=== PATIENT | female | born 1940 | race Caucasian/White ===

== ENCOUNTER 2020-03-07 18:12 | Inpatient (IN) | payer MEDICARE, OTHER ==
--- NOTE | 2020-03-07 18:30 | ED ---
General Adult HPI - General Chief complaint: Shortness of Breath Stated complaint: + COVID,SOB Time Seen by Provider: 03/07/20 18:18 Source: patient, RN/MD, EMS Mode of arrival: EMS Limitations: no limitations - History of Present Illness Initial comments: Dictation was produced using [employer] dictation software. please excuse any grammatical, word or spelling errors. This patient was cared for during a federal and state declared state of emergency secondary to Covid 19 Chief Complaint: 79-year-old female sent in from [facility] for hypoxic respiratory failure secondary to Covid 19 History of Present Illness: 79-year-old female she was transferred from [facility] by Dr. Limon. Patient was in ER to ER transfer. According to transferring ER physician patient was sent here for higher level of care. She is one other residents at their local nursing homes. She is transferred to emergency department for low saturations in the 70s and 80 percents. Patient is required supplemental oxygen. At the emergency room patient was placed on BiPAP. She was given 1 dose of remdesivir. EMS reports that patient seemed a little wheezing and she was given a breathing treatment for low saturations. The transfer patient was with CPAP. She did have low oxygens. Patient does complain of some mild epigastric pain. The ROS documented in this emergency department record has been reviewed and confirmed by me. Those systems with pertinent positive or negative responses have been documented in the HPI. All other systems are other negative and/or noncontributory. PHYSICAL EXAM: General Impression: Alert and oriented x3, mildly dyspneic, BiPAP in place HEENT: Normocephalic atraumatic, extra-ocular movements intact, pupils equal and reactive to light bilaterally, mucous membranes moist. Cardiovascular: Heart regular rate and rhythm Chest: Able to complete full sentences, no retractions, no tachypnea Abdomen: abdomen soft, non-tender, non-distended, no organomegaly Musculoskeletal: Pulses present and equal in all extremities, no peripheral edema Motor: no focal deficits noted Neurological: CN II-XII grossly intact, no focal motor or sensory deficits noted Skin: Intact with no visualized rashes Psych: Normal affect and mood ED course: 79-year-old female presents with Covid 19 pneumonia. Patient sent here for hypoxic respiratory failure possible ICU admission. Patient is well- appearing at bedside however she does appear to be hypoxic. She is in the high 80s low 90s with bilevel positive airway ventilation. Transfer documentation reviewed reviewed. ABGs were ordered. PO2 is 43, bicarb 26, CO2 of 28, pH of 7.47. Chest x-ray shows CHF and possible right lower lobe pneumonia and right pleural effusion. This is discussed that she does want to set patient's care. Patient will be admitted to intensive care unit. Case is discussed with Dr. Chambers who is willing for patient disposition to intensive care unit. EKG interpretation: Ventricular rate 80, normal sinus rhythm,. 188, QRS 100, QTC 491. No OK prolongation, no QTC prolongation, no ST or T-wave changes noted. - Related Data Allergies Allergy/AdvReac Type Severity Reaction Status Date / Time No Known Allergies Allergy Verified 03/07/20 18:17 Review of Systems ROS Statement: Those systems with pertinent positive or pertinent negative responses have been documented in the HPI. ROS Other: All systems not noted in ROS Statement are negative. Past Medical History Past Medical History: COPD, Hyperlipidemia, Hypertension History of Any Multi-Drug Resistant Organisms: None Reported Past Surgical History: Section Past Psychological History: No Psychological Hx Reported Smoking Status: Never smoker Past Alcohol Use History: None Reported Past Drug Use History: None Reported General Exam Limitations: no limitations Course Vital Signs 03/07/20 03/07/20 18:17 18:25 Temperature 98.6 F 98.6 F Pulse Rate 79 76 Respiratory 36 H 24 Rate Blood Pressure 120/68 O2 Sat by Pulse 88 L 91 L Oximetry Medical Decision Making - Lab Data Lab Results 03/07/20 Range/Units 18:28 Sample Site left radial ABG pH 7.42 (7.35-7.45) ABG pCO2 42 (35-45) mmHg ABG pO2 97 (83-108) mmHg ABG HCO3 27 H (21-25) mmol/L ABG Total CO2 28 H (19-24) mmol/L ABG O2 Saturation 96.5 (94-97) % ABG Base Excess 2.7 mmol/L Eriberto Test Yes FiO2 100 % Critical Care Time Critical Care Time: Yes Total Critical Care Time: 33 Disposition Clinical Impression: Respiratory failure, COVID-19 Disposition: ADMITTED IP TO THIS [facility] Condition: Critical Referrals: Nonstaff,Physician [REFERRING] - 1-2 days Decision Time: 19:16
[2020-03-07 18:32] LABS: Allen Test Performed? Yes
[2020-03-07 18:38] LABS: ABG TCO2 28 mmol/L (19-24)
--- NOTE | 2020-03-07 19:02 | XR ---
EXAMINATION TYPE: XR chest 1V portable DATE OF EXAM: 03/07/2020 COMPARISON: NONE HISTORY: Short of breath TECHNIQUE: FINDINGS: Heart is enlarged. There is pulmonary vascular congestion. There is blunting of the right c ostophrenic angle. There is increased density right lower lobe. IMPRESSION: Congestive heart failure. There is probably also right lower lobe pneumonia. Right pleura l effusion.
[2020-03-07 19:07] LABS: ABG HCO3 27 mmol/L (21-25); ABG PCO2 42 mmHg (35-45); ABG PH 7.42 (7.35-7.45); ABG PO2 97 mmHg (83-108)
[2020-03-07 19:08] LABS: ABG Base Excess 2.7 mmol/L; ABG Oxygen Saturation 96.5 % (94-97)
[2020-03-07] MEDS ORDERED: NALOXONE 0.4 MG/ML 1 ML VIAL IV PRN (19:12)
[2020-03-07] MEDS: ENOXAPARIN 40 MG/0.4 ML SYRINGE SQ SCH (21:23)
[2020-03-07] MEDS: SODIUM CHLORIDE 0.9% 1,000 ML IV SCH (21:24)
[2020-03-07] MEDS: DEXAMETHASONE SOD PHOSPHATE 4 MG/ML 1 ML VIAL IV SCH (21:24)
[2020-03-07 23:50] LABS: Glucose,Whole Blood 333 mg/dL (75-99)
[2020-03-08 00:21] LABS: Allen Test Performed? Yes
[2020-03-08 00:37] LABS: ABG Base Excess 3.6 mmol/L; ABG HCO3 28 mmol/L (21-25); ABG Oxygen Saturation 94.1 % (94-97); ABG PCO2 43 mmHg (35-45); ABG PH 7.42 (7.35-7.45); ABG PO2 74 mmHg (83-108); ABG TCO2 29 mmol/L (19-24)
[2020-03-08] MEDS: LORazepam 2 MG/ML INJ IV PRN (02:11)
[2020-03-08] MEDS ORDERED: propofoL 100 ML IV ONE (03:19)
--- NOTE | 2020-03-08 04:38 | XR ---
EXAM: XR Chest, 1 View CLINICAL HISTORY: ITS.REASON XR Reason: Tube placement TECHNIQUE: Frontal view of the chest. COMPARISON: 03/07/2020 IMPRESSION: ET tube terminates 2.9 cm from the messi. NG tube enters into the stomach but projects off the field of view. Bilateral lung opacities are again seen. Subcentimeter nodular densities in the right upper lobe
[2020-03-08] MEDS ORDERED: fentaNYL (PF) 1,000 MCG in SODIUM CHLORIDE 0.9% 80 ML IV SCH (05:00)
[2020-03-08 06:02] LABS: Glucose,Whole Blood 260 mg/dL (75-99)
[2020-03-08 06:04] LABS: Basophils % (A) 1 %; Eosinophils % (A) 1 %; HCT 35.7 % (34.0-46.0); Lymphocytes # (A) 0.8 k/uL (1.0-4.8); Lymphocytes % (A) 16 %; MCH 30.3 pg (25.0-35.0); MCHC 33.6 g/dL (31.0-37.0); Mean Platelet Volume 7.6; Monocytes # (A) 0.3 k/uL (0-1.0); Monocytes % (A) 6 %; Neutrophils # (A) 3.7 k/uL (1.3-7.7); Neutrophils % (A) 76 %; Platelet Count 193 k/uL (150-450); RBC 3.97 m/uL (3.80-5.40); RDW 12.5 % (11.5-15.5); WBC 4.9 k/uL (3.8-10.6)
[2020-03-08 06:11] LABS: ABG Base Excess 2.3 mmol/L; ABG HCO3 26 mmol/L (21-25); ABG Oxygen Saturation 98.7 % (94-97); ABG PCO2 37 mmHg (35-45); ABG PH 7.46 (7.35-7.45); ABG PO2 207 mmHg (83-108); ABG TCO2 27 mmol/L (19-24); Allen Test Performed? Yes
[2020-03-08] MEDS: INSULIN ASPART (NovoLOG) 100 UNIT/ML VIAL SQ SCH ×3 (06:26→18:37)
[2020-03-08 06:30] LABS: Albumin 3.3 g/dL (3.5-5.0); Calcium 8.7 mg/dL (8.4-10.2); Potassium 3.9 mmol/L (3.5-5.1); Total Bilirubin 0.7 mg/dL (0.2-1.3); Total Protein 6.5 g/dL (6.3-8.2)
[2020-03-08 06:50] LABS: C Reactive Protein 204.7 mg/L (<10.0)
[2020-03-08] MEDS ORDERED: Potassium Replacement Protocol 1 EACH MISC MISCELLANE PRN (07:02)
[2020-03-08] MEDS ORDERED: INSULIN ASPART (NovoLOG) 100 UNIT/ML VIAL SQ SCH (07:30)
[2020-03-08] MEDS ORDERED: POTASSIUM BICARBONATE/CIT AC 20 MEQ TABLET.EFF NG-TUBE SCH (08:00)
[2020-03-08] MEDS: CHLORHEXIDINE GLUCONATE 15 ML CUP MUCOUS MEM SCH ×2 (09:26→20:40)
[2020-03-08] MEDS: PANTOPRAZOLE 40 MG/10 ML VIAL IVP SCH (09:27)
[2020-03-08] MEDS: NOREPINEPHRINE 8 MG in SODIUM CHLORIDE 0.9% 250 ML IV SCH (10:30)
--- NOTE | 2020-03-08 11:15 | XR ---
EXAMINATION TYPE: XR chest 1V portable DATE OF EXAM: 03/08/2020 CLINICAL HISTORY: Central line placement. TECHNIQUE: Single AP portable semiupright view of the chest is obtained. COMPARISON: Chest x-ray from earlier today an older studies FINDINGS: New right sided central venous catheter terminates in right atrium. Stable endotracheal an d orogastric tubes. Persistent elevated right hemidiaphragm with increased opacities bilaterally. No pleural effusion or pneumothorax seen. Enlarged cardiomediastinal silhouette redemonstrated. Osseous structures remain de mineralized. IMPRESSION: New right central venous catheter terminates in right atrium. No pneumothorax noted. Pers istent low lung volumes and cardiomegaly with bilateral multifocal edema and/or infiltrates.
[2020-03-08 13:38] LABS: Hemoglobin A1C 7.9 % (4.0-6.0)
--- NOTE | 2020-03-08 15:35 | PCN ---
PROCEDURE NOTE OPERATIVE REPORT: Placement of a right subclavian triple-lumen catheter. PREOPERATIVE DIAGNOSIS: Acute hypoxic respiratory failure secondary to COVID-19 pneumonitis. POSTOPERATIVE DIAGNOSIS: Acute hypoxic respiratory failure secondary to COVID-19 pneumonitis. ANESTHESIA USED: 2 mL of 1% lidocaine. PROCEDURE DETAILS: Patient was placed in a Trendelenburg position, the area of the right subclavian region was prepared in a sterile fashion and drapes were applied. Then, the area was locally anesthetized with lidocaine. Using the infraclavicular approach, the right subclavian vein was easily cannulated, a guidewire was placed, the area around the guidewire was dilated. Then a triple-lumen catheter was inserted over the guidewire, the guidewire was removed. Good blood flow noted in the 3 different ports of the triple-lumen catheter. Line was secured using 3.0 silk sutures. No evidence of any complications. Chest x-ray showed adequate placement of the right subclavian line and no complications. MMODL / IJN: [id number] /
--- NOTE | 2020-03-08 15:35 | PCN ---
PROCEDURE NOTE OPERATIVE REPORT: Placement of the left brachial arterial line. PREOPERATIVE DIAGNOSIS: Acute hypoxic respiratory failure secondary to Covid-19 pneumonitis. POSTOPERATIVE DIAGNOSIS: Acute hypoxic respiratory failure secondary to Covid-19 pneumonitis. ANESTHESIA: Used none deployed. PROCEDURE DETAILS: The left brachial region was prepared in a sterile fashion and drapes applied. The left brachial artery was palpated, easily cannulated, a guidewire was placed. A Cook catheter was inserted over the guidewire, guidewire was removed. Good blood flow, good waveform noted, line was secured using 3.0 silk sutures, and no evidence of any complications. MMODL / IJN: [id number] /
--- NOTE | 2020-03-08 16:17 | P.CNPUL ---
History of Present Illness Consult date: 03/08/20 Requesting physician: Hector E Sheet Reason for consult: other (Acute hypoxic respiratory failure) Chief complaint: Shortness of breath History of present illness: This is a 79-year-old female transferred last night from [facility] to our ER with acute hypoxic respiratory failure, and bilateral pneumonia. Patient tested positive for covid 19, and her chest x-ray is classic for Covid 19 pneumonitis. Patient was initially on BiPAP, and her initial ABG was extremely poor. Patient was admitted to the ICU, and she Removing her BiPAP. Hence she was intubated and placed on mechanical ventilation. I saw this patient this morning, and she is now on assist control mode of mechanical ventilation, rate of 2412 volume is 450 FiO2 is 60% and PEEP of 10. ABG on 100% FiO2 showed a pO2 of 207 pCO2 of 37 pH of 7.46. Patient is on propofol at 50 mcg/kg/m, she also on fentanyl at 0.5 mcg/kg per hour. She received 1 dose of remdesivir at [facility], I was considering to continue the medication, however since her CODE STATUS has been changed, and the daughter is considering possible comfort care measures, will hold further treatment with remdesivir. Chest x-ray showed evidence of diffuse interstitial infiltrates. Review of Systems ROS unobtainable: due to endotracheal tube Past Medical History Past Medical History: COPD, Hyperlipidemia, Hypertension History of Any Multi-Drug Resistant Organisms: None Reported Past Surgical History: Section Past Anesthesia/Blood Transfusion Reactions: No Reported Reaction Smoking Status: Never smoker Medications and Allergies Home Medications Medication Instructions Recorded Confirmed Type Acetaminophen [Tylenol] 650 mg PO Q6H PRN 03/07/20 03/07/20 History Artificial Tears-Hypromellose 1 drops BOTH EYES BID 03/07/20 03/07/20 History [Artificial Tear Drops] Ascorbic Acid [Vitamin C] 500 mg PO DAILY 03/07/20 03/07/20 History Aspirin [Adult Low Dose Aspirin EC] 81 mg PO DAILY 03/07/20 03/07/20 History Atorvastatin [Lipitor] 10 mg PO HS 03/07/20 03/07/20 History Azithromycin [Zithromax Z-pack (6 See Taper PO DIRECTED 03/07/20 03/07/20 History tabs)] Carvedilol [Coreg] 12.5 mg PO BID 03/07/20 03/07/20 History Cholecalciferol [Vitamin D3 (25 5,000 unit PO DAILY 03/07/20 03/07/20 History Mcg = 1000 Iu)] DULoxetine HCL [Cymbalta] 60 mg PO DAILY 03/07/20 03/07/20 History Dexamethasone 6 mg PO DAILY 03/07/20 03/07/20 History Diphenox-Atrop 2.5-0.025 mg 1 tab PO QID PRN 03/07/20 03/07/20 History [Lomotil] Furosemide [Lasix] 20 mg PO DAILY 03/07/20 03/07/20 History Gabapentin [Neurontin] 100 mg PO BID 03/07/20 03/07/20 History HYDROcodone/APAP 5-325MG [Victor 1 tab PO QID 03/07/20 03/07/20 History 5-325] LORazepam [Ativan] 1 mg PO Q2H PRN 03/07/20 03/07/20 History Levothyroxine Sodium [Synthroid] 50 mcg PO DAILY 03/07/20 03/07/20 History Magnesium Hydroxide [Milk of 2,400 mg PO Q48H PRN 03/07/20 03/07/20 History Magnesia] Mirtazapine [Remeron] 15 mg PO HS 03/07/20 03/07/20 History Pantoprazole Sodium [Protonix] 20 mg PO DAILY 03/07/20 03/07/20 History Potassium Chloride ER [K-Dur 10] 10 meq PO DAILY 03/07/20 03/07/20 History Sennosides-Docusate Sodium 1 tab PO HS 03/07/20 03/07/20 History [Senokot-S] Zinc 50 mg PO DAILY 03/07/20 03/07/20 History lisinopriL [Zestril] 2.5 mg PO DAILY 03/07/20 03/07/20 History Allergies Allergy/AdvReac Type Severity Reaction Status Date / Time No Known Allergies Allergy Verified 03/07/20 22:15 Physical Exam Vitals: Vital Signs Temp Pulse Resp BP Pulse Ox 03/08/20 12:00 66 24 91 L 03/08/20 11:00 66 24 70/53 87 L 03/08/20 10:00 70 24 93/60 92 L 03/08/20 09:00 70 24 88/59 92 L 03/08/20 08:00 74 24 97/63 91 L 03/08/20 07:00 73 24 94/61 90 L 03/08/20 06:00 69 25 H 102/66 98 03/08/20 05:00 74 24 91/60 99 03/08/20 04:00 98.5 F 82 26 H 166/87 77 L 03/08/20 03:00 63 43 H 106/89 91 L 03/08/20 02:00 69 26 H 147/88 94 L 03/08/20 01:00 68 28 H 150/82 94 L 03/08/20 00:00 67 36 H 150/82 93 L 03/07/20 23:45 98.7 F 71 30 H 166/109 94 L 03/07/20 23:00 99.0 F 75 32 H 124/77 98 03/07/20 22:00 98.0 F 89 34 H 116/87 95 03/07/20 21:30 57 L 28 H 138/84 95 03/07/20 21:00 72 30 H 131/77 95 03/07/20 19:23 69 30 H 121/89 94 L 03/07/20 18:25 98.6 F 76 24 91 L 03/07/20 18:17 98.6 F 79 36 H 120/68 88 L Intake and Output 03/08/20 03/08/20 03/08/20 06:59 14:59 22:59 Intake Total 232.584 162.661 Output Total 315 55 Balance -82.416 107.661 Intake: IV 160 60 Sodium Chloride 0.9% 1, 160 60 000 ml @ 20 mls/hr IV . Q24H KESHAV Rx#:[id number] Intake, IV Titration 72.584 102.661 Amount Norepinephrine 8 mg In 2.661 Sodium Chloride 0.9% 250 ml @ 0.05 MCG/KG/MIN 10. 643 mls/hr IV .Q24H KESHAV Rx#:[id number] propofoL 1,000 mg In 72.584 100 Empty Bag 1 bag @ Titrate IV .Q0M KESHAV Rx#: [id number] Output: Urine 315 55 Other: Voiding Method Indwelling Catheter Weight 110 kg 110 kg ABP, PAP, CO, CI - Last 8 Hours Arterial Blood Pressure 105/59 Arterial Blood Pressure 60/37 Physical Exam: Revealed a 79-year-old female, morbidly obese, intubated and mechanically ventilated. Head: Atraumatic, normocephalic. Endotracheal tube, orogastric tube are intact. Right subclavian central line is noted. HEENT:[Neck is supple.] [No neck masses.] [No thyromegaly.] [No JVD.] Chest: Symmetrical chest expansion, crackles and rhonchi noted bilaterally. Cardiac Exam: [Normal S1 and S2, no S3 gallop, no murmur.] Abdomen: [Morbidly obese, Soft, nontender, no megaly, no rebound, no guarding, normal bowel sounds.] Extremities: [No clubbing, no edema, no cyanosis.] Good pulses bilaterally Neurological Exam: Could not assess, patient is on propofol and fentanyl. Psychiatric could not assess Results - Laboratory Findings CBC and BMP: 03/08/20 05:34 03/08/20 05:34 ABG ABG pH 7.46 (7.35-7.45) H 03/08/20 06:05 ABG pCO2 37 mmHg (35-45) 03/08/20 06:05 ABG pO2 207 mmHg (83-108) H 03/08/20 06:05 ABG O2 Saturation 98.7 % (94-97) H 03/08/20 06:05 PT/INR, D-dimer D-Dimer 0.75 mg/L FEU (<0.60) H 03/08/20 05:34 Abnormal lab findings: Abnormal Labs 03/07/20 03/07/20 03/08/20 18:28 23:49 00:35 Lymphocytes # D-Dimer ABG pH ABG pO2 74 L ABG HCO3 27 H 28 H ABG Total CO2 28 H 29 H ABG O2 Saturation Sodium BUN Glucose POC Glucose (mg/dL) 333 H Hemoglobin A1c Ferritin AST Lactate Dehydrogenase C-Reactive Protein Albumin 03/08/20 03/08/20 03/08/20 05:34 05:34 05:34 Lymphocytes # 0.8 L D-Dimer 0.75 H ABG pH ABG pO2 ABG HCO3 ABG Total CO2 ABG O2 Saturation Sodium 135 L BUN 31 H Glucose 276 H POC Glucose (mg/dL) Hemoglobin A1c Ferritin 768.0 H AST 37 H Lactate Dehydrogenase 1171 H C-Reactive Protein 204.7 H Albumin 3.3 L 03/08/20 03/08/20 03/08/20 05:34 06:01 06:05 Lymphocytes # D-Dimer ABG pH 7.46 H ABG pO2 207 H ABG HCO3 26 H ABG Total CO2 27 H ABG O2 Saturation 98.7 H Sodium BUN Glucose POC Glucose (mg/dL) 260 H Hemoglobin A1c 7.9 H Ferritin AST Lactate Dehydrogenase C-Reactive Protein Albumin - Diagnostic Findings Chest x-ray: image reviewed (As noted in HPI.) Assessment and Plan Assessment: Impression: Acute hypoxic respiratory failure secondary to Covid 19 pneumonitis. History of benign essential hypertension. History of dyslipidemia. History of underlying COPD, severity of which is not clear. Recommendation: Continue ventilatory support. Continue Covid 19 cocktail. GI and DVT prophylaxis. Nutritional support/enteral feeding. Hemodynamic support if necessary. Prognosis is definitely guarded. adjust ventilator settings accordingly based on the next ABG. Continue propofol and fentanyl for now. Apparently the nurse taking care of the patient had discussion with her daughter, and CODE STATUS has been all along DO NOT RESUSCITATE, daughter is considering comfort care measures. Will recommend the wishes of the daughter , we will proceed with comfort care measures if the daughter wishes and if those are true wishes of the patient prior to this episode. Time with Patient: Greater than 30
[2020-03-08 18:36] LABS: Glucose,Whole Blood 250 mg/dL (75-99)
[2020-03-08] MEDS: SODIUM CHLORIDE 0.9% 1,000 ML IV SCH (18:37)
[2020-03-08] MEDS: fentaNYL (PF) 1,000 MCG in SODIUM CHLORIDE 0.9% 80 ML IV SCH (19:05)
[2020-03-08] MEDS: DEXAMETHASONE SOD PHOSPHATE 4 MG/ML 1 ML VIAL IV SCH (20:40)
[2020-03-08] MEDS: ENOXAPARIN 40 MG/0.4 ML SYRINGE SQ SCH (20:40)
[2020-03-08 23:55] LABS: Glucose,Whole Blood 210 mg/dL (75-99)
[2020-03-09 04:15] LABS: Basophils # (A) 0.1 k/uL (0-0.2); Basophils % (A) 1 %; Eosinophils % (A) 0 %; HCT 34.1 % (34.0-46.0); HGB 11.6 gm/dL (11.4-16.0); Lymphocytes # (A) 0.6 k/uL (1.0-4.8); Lymphocytes % (A) 10 %; MCH 30.2 pg (25.0-35.0); MCHC 34.1 g/dL (31.0-37.0); MCV 88.6 fL (80.0-100.0); Mean Platelet Volume 7.8; Monocytes # (A) 0.4 k/uL (0-1.0); Monocytes % (A) 6 %; Neutrophils # (A) 5.2 k/uL (1.3-7.7); Neutrophils % (A) 82 %; Platelet Count 204 k/uL (150-450); RBC 3.85 m/uL (3.80-5.40); RDW 12.5 % (11.5-15.5); WBC 6.4 k/uL (3.8-10.6)
--- NOTE | 2020-03-09 04:49 | P.HPIM ---
History of Present Illness This is a pleasant 79 years old female who was transferred from [facility] for bilateral covid Pneumonia as her test came back positive she's also with acute hypoxic respiratory failure initially she was on BiPAP but later on she needed intubation and placed on mechanical ventilation and was transferred to the intensive care unit under the care and close monitoring of the pulmonary/critical care team, patient could not provide information and were obtained from records Patient currently is on dexamethasone and supportive care and medication Patient status changed to DO NOT RESUSCITATE per daughter request labs and vitals are reviewed Review of Systems N/a, patient is intubated Past Medical History Past Medical History: COPD, Hyperlipidemia, Hypertension History of Any Multi-Drug Resistant Organisms: None Reported Past Surgical History: Section Past Anesthesia/Blood Transfusion Reactions: No Reported Reaction Smoking Status: Never smoker Medications and Allergies Home Medications Medication Instructions Recorded Confirmed Type Acetaminophen [Tylenol] 650 mg PO Q6H PRN 03/07/20 03/07/20 History Artificial Tears-Hypromellose 1 drops BOTH EYES BID 03/07/20 03/07/20 History [Artificial Tear Drops] Ascorbic Acid [Vitamin C] 500 mg PO DAILY 03/07/20 03/07/20 History Aspirin [Adult Low Dose Aspirin EC] 81 mg PO DAILY 03/07/20 03/07/20 History Atorvastatin [Lipitor] 10 mg PO HS 03/07/20 03/07/20 History Azithromycin [Zithromax Z-pack (6 See Taper PO DIRECTED 03/07/20 03/07/20 History tabs)] Carvedilol [Coreg] 12.5 mg PO BID 03/07/20 03/07/20 History Cholecalciferol [Vitamin D3 (25 5,000 unit PO DAILY 03/07/20 03/07/20 History Mcg = 1000 Iu)] DULoxetine HCL [Cymbalta] 60 mg PO DAILY 03/07/20 03/07/20 History Dexamethasone 6 mg PO DAILY 03/07/20 03/07/20 History Diphenox-Atrop 2.5-0.025 mg 1 tab PO QID PRN 03/07/20 03/07/20 History [Lomotil] Furosemide [Lasix] 20 mg PO DAILY 03/07/20 03/07/20 History Gabapentin [Neurontin] 100 mg PO BID 03/07/20 03/07/20 History HYDROcodone/APAP 5-325MG [Bryan 1 tab PO QID 03/07/20 03/07/20 History 5-325] LORazepam [Ativan] 1 mg PO Q2H PRN 03/07/20 03/07/20 History Levothyroxine Sodium [Synthroid] 50 mcg PO DAILY 03/07/20 03/07/20 History Magnesium Hydroxide [Milk of 2,400 mg PO Q48H PRN 03/07/20 03/07/20 History Magnesia] Mirtazapine [Remeron] 15 mg PO HS 03/07/20 03/07/20 History Pantoprazole Sodium [Protonix] 20 mg PO DAILY 03/07/20 03/07/20 History Potassium Chloride ER [K-Dur 10] 10 meq PO DAILY 03/07/20 03/07/20 History Sennosides-Docusate Sodium 1 tab PO HS 03/07/20 03/07/20 History [Senokot-S] Zinc 50 mg PO DAILY 03/07/20 03/07/20 History lisinopriL [Zestril] 2.5 mg PO DAILY 03/07/20 03/07/20 History Allergies Allergy/AdvReac Type Severity Reaction Status Date / Time No Known Allergies Allergy Verified 03/07/20 22:15 Physical Exam Vitals: Vital Signs Temp Pulse Resp BP Pulse Ox 03/08/20 12:00 66 24 91 L 03/08/20 11:00 66 24 70/53 87 L 03/08/20 10:00 70 24 93/60 92 L 03/08/20 09:00 70 24 88/59 92 L 03/08/20 08:00 74 24 97/63 91 L 03/08/20 07:00 73 24 94/61 90 L 03/08/20 06:00 69 25 H 102/66 98 03/08/20 05:00 74 24 91/60 99 03/08/20 04:00 98.5 F 82 26 H 166/87 77 L 03/08/20 03:00 63 43 H 106/89 91 L 03/08/20 02:00 69 26 H 147/88 94 L 03/08/20 01:00 68 28 H 150/82 94 L 03/08/20 00:00 67 36 H 150/82 93 L 03/07/20 23:45 98.7 F 71 30 H 166/109 94 L 03/07/20 23:00 99.0 F 75 32 H 124/77 98 03/07/20 22:00 98.0 F 89 34 H 116/87 95 03/07/20 21:30 57 L 28 H 138/84 95 03/07/20 21:00 72 30 H 131/77 95 03/07/20 19:23 69 30 H 121/89 94 L 03/07/20 18:25 98.6 F 76 24 91 L 03/07/20 18:17 98.6 F 79 36 H 120/68 88 L Intake and Output 03/07/20 03/08/20 03/08/20 22:59 06:59 14:59 Intake Total 232.584 162.661 Output Total 315 55 Balance -82.416 107.661 Intake: IV 160 60 Sodium Chloride 0.9% 1, 160 60 000 ml @ 20 mls/hr IV . Q24H KESHAV Rx#:[id number] Intake, IV Titration 72.584 102.661 Amount Norepinephrine 8 mg In 2.661 Sodium Chloride 0.9% 250 ml @ 0.05 MCG/KG/MIN 10. 643 mls/hr IV .Q24H KESHAV Rx#:[id number] propofoL 1,000 mg In 72.584 100 Empty Bag 1 bag @ Titrate IV .Q0M KESHAV Rx#: [id number] Output: Urine 315 55 Other: Voiding Method Indwelling Catheter Weight 114.305 kg 110 kg 110 kg ABP, PAP, CO, CI - Last 8 Hours Arterial Blood Pressure 105/59 Arterial Blood Pressure 60/37 -GENERAL: The patient is intubated and sedated HEENT: Pupils are round and equally reacting to light. EOMI. No scleral icterus. No conjunctival pallor. Normocephalic, atraumatic. No pharyngeal erythema. No thyromegaly. CARDIOVASCULAR: S1 and S2 present. No murmurs, rubs, or gallops. -PULMONARY: Chest is clear to auscultation, no wheezing . Tachypnea with bilateral ABDOMEN: Soft, nontender, nondistended, normoactive bowel sounds. No palpable organomegaly. MUSCULOSKELETAL: No joint swelling or deformity. EXTREMITIES: No cyanosis, clubbing, or pedal edema. NEUROLOGICAL: Gross neurological examination did not reveal any focal deficits. SKIN: No rashes. no petechiae. Results CBC & Chem 7: 03/09/20 04:02 03/08/20 05:34 Labs: Abnormal Lab Results - Last 24 Hours (Table) 03/07/20 03/07/20 03/08/20 Range/Units 18:28 23:49 00:35 Lymphocytes # (1.0-4.8) k/uL D-Dimer (<0.60) mg/L FEU ABG pH (7.35-7.45) ABG pO2 74 L (83-108) mmHg ABG HCO3 27 H 28 H (21-25) mmol/L ABG Total CO2 28 H 29 H (19-24) mmol/L ABG O2 Saturation (94-97) % Sodium (137-145) mmol/L BUN (7-17) mg/dL Glucose (74-99) mg/dL POC Glucose (mg/dL) 333 H (75-99) mg/dL Ferritin (10.0-291.0) ng/mL AST (14-36) U/L Lactate Dehydrogenase (313-618) U/L C-Reactive Protein (<10.0) mg/L Albumin (3.5-5.0) g/dL 03/08/20 03/08/20 03/08/20 Range/Units 05:34 05:34 05:34 Lymphocytes # 0.8 L (1.0-4.8) k/uL D-Dimer 0.75 H (<0.60) mg/L FEU ABG pH (7.35-7.45) ABG pO2 (83-108) mmHg ABG HCO3 (21-25) mmol/L ABG Total CO2 (19-24) mmol/L ABG O2 Saturation (94-97) % Sodium 135 L (137-145) mmol/L BUN 31 H (7-17) mg/dL Glucose 276 H (74-99) mg/dL POC Glucose (mg/dL) (75-99) mg/dL Ferritin 768.0 H (10.0-291.0) ng/mL AST 37 H (14-36) U/L Lactate Dehydrogenase 1171 H (313-618) U/L C-Reactive Protein 204.7 H (<10.0) mg/L Albumin 3.3 L (3.5-5.0) g/dL 03/08/20 03/08/20 Range/Units 06:01 06:05 Lymphocytes # (1.0-4.8) k/uL D-Dimer (<0.60) mg/L FEU ABG pH 7.46 H (7.35-7.45) ABG pO2 207 H (83-108) mmHg ABG HCO3 26 H (21-25) mmol/L ABG Total CO2 27 H (19-24) mmol/L ABG O2 Saturation 98.7 H (94-97) % Sodium (137-145) mmol/L BUN (7-17) mg/dL Glucose (74-99) mg/dL POC Glucose (mg/dL) 260 H (75-99) mg/dL Ferritin (10.0-291.0) ng/mL AST (14-36) U/L Lactate Dehydrogenase (313-618) U/L C-Reactive Protein (<10.0) mg/L Albumin (3.5-5.0) g/dL Thrombosis Risk Factor Assmnt - Choose All That Apply Each Factor Represents 1 point: Heart failure (<1month), Medical pt on bed rest, Obesity (BMI >25) Each Risk Factor Represents 3 Points: Age 75 years or older Thrombosis Risk Factor Assessment Total Risk Factor Score: 6 Thrombosis Risk Factor Assessment Level: High Risk Assessment and Plan Assessment: Acute bilateral covid pneumonia Acute hypoxic respiratory failure needing intubation and mechanical ventilation Increase inflammatory markers Hypertension Hyperlipidemia COPD Plan: This is a 79 years old female who presents with Covid pneumonia. Continue with ICU management, continue with intubation and mechanical ventilation with management as per pulmonary/critical care team. Continue with dexamethasone. Labs and medication were reviewed.. Continue same treatment. Continue with symptomatic treatment. Resume home medication. Monitor lytes and vitals. DVT and GI prophylaxis. Further recommendationsas per clinical course of the patient DVT prophylaxis: Lovenox subcutaneously GI Prophylaxis: Ppi Prognosis is very guarded CODE STATUS: Changed to DO NOT RESUSCITATE per Daughter request
[2020-03-09 05:03] LABS: Albumin 3.1 g/dL (3.5-5.0); Calcium 8.7 mg/dL (8.4-10.2); Potassium 3.5 mmol/L (3.5-5.1); Total Bilirubin 0.7 mg/dL (0.2-1.3); Total Protein 6.3 g/dL (6.3-8.2)
[2020-03-09 05:20] LABS: ABG Base Excess 3.4 mmol/L; ABG HCO3 26 mmol/L (21-25); ABG Oxygen Saturation 94.5 % (94-97); ABG PCO2 33 mmHg (35-45); ABG PH 7.51 (7.35-7.45); ABG PO2 72 mmHg (83-108); ABG TCO2 27 mmol/L (19-24); Allen Test Performed? Yes
[2020-03-09 05:28] LABS: C Reactive Protein 161.8 mg/L (<10.0)
[2020-03-09 05:31] LABS: Glucose,Whole Blood 243 mg/dL (75-99)
[2020-03-09] MEDS: INSULIN ASPART (NovoLOG) 100 UNIT/ML VIAL SQ SCH ×4 (06:19→18:13)
[2020-03-09] MEDS: POTASSIUM BICARBONATE/CIT AC 20 MEQ TABLET.EFF NG-TUBE SCH ×2 (06:39→08:43)
--- NOTE | 2020-03-09 06:58 | XR ---
EXAMINATION TYPE: XR chest 1V portable DATE OF EXAM: 03/09/2020 CLINICAL HISTORY: Difficulty breathing progress study. TECHNIQUE: Single AP portable semiupright view of the chest is obtained. COMPARISON: Chest x-ray from one day earlier FINDINGS: Stable right sided central venous catheter, endotracheal, and orogastric tubes. Persistent elevated right hemidiaphragm with increased opacities bilaterally. Some left-sided improve ment felt present. Improved inspiration current study No pleural effusion or pneumothorax seen. Enlar ged cardiomediastinal silhouette redemonstrated. Multilevel spurring thoracic spine noted. IMPRESSION: Improved inspiration. Chronic parenchymal changes and cardiomegaly with bilateral multifo vivek infiltrates and/or edema redemonstrated. Left upper lung findings felt improved from one day cody ier.
[2020-03-09] MEDS: fentaNYL (PF) 1,000 MCG in SODIUM CHLORIDE 0.9% 80 ML IV SCH (08:41)
[2020-03-09] MEDS: CHLORHEXIDINE GLUCONATE 15 ML CUP MUCOUS MEM SCH ×2 (08:43→20:59)
[2020-03-09] MEDS: PANTOPRAZOLE 40 MG/10 ML VIAL IVP SCH (08:43)
[2020-03-09 10:14] LABS: Ferritin 635.6 ng/mL (10.0-291.0)
[2020-03-09 12:18] LABS: Glucose,Whole Blood 254 mg/dL (75-99)
[2020-03-09] MEDS: NOREPINEPHRINE 8 MG in SODIUM CHLORIDE 0.9% 250 ML IV SCH (13:01)
--- NOTE | 2020-03-09 14:57 | P.PN ---
Subjective Progress Note Date: 03/09/20 Principal diagnosis: Acute hypoxic respiratory failure secondary to covid19 pneumonitis. This is a 79-year-old female transferred last night from [facility] to our ER with acute hypoxic respiratory failure, and bilateral pneumonia. Patient tested positive for covid 19, and her chest x-ray is classic for Covid 19 pneumonitis. Patient was initially on BiPAP, and her initial ABG was extremely poor. Patient was admitted to the ICU, and she Removing her BiPAP. Hence she was intubated and placed on mechanical ventilation. I saw this patient this morning, and she is now on assist control mode of mechanical ventilation, rate of 2412 volume is 450 FiO2 is 60% and PEEP of 10. ABG on 100% FiO2 showed a pO2 of 207 pCO2 of 37 pH of 7.46. Patient is on propofol at 50 mcg/kg/m, she also on fentanyl at 0.5 mcg/kg per hour. She received 1 dose of remdesivir at [facility], I was considering to continue the medication, however since her CODE STATUS has been changed, and the daughter is considering possible comfort care measures, will hold further treatment with remdesivir. Chest x-ray showed evidence of diffuse interstitial infiltrates. Patient was reevaluated today on 03/09/20, remains in the ICU, intubated and mechanically ventilated. Her ventilator settings are assist control rate of 24 FiO2 is 60% tidal volume is 453 is at 10. ABG showed a pO2 of 72 pCO2 of 33 pH of 7.51. Her peak airway pressure is 32 and her static pressure is 29. Patient is requiring very minimal dose of norepinephrine 0.003 mcg/kg/m. Remains on fentanyl at 0.5 mcg/kg/h, I cut it down to 0.25 remains on propofol at 40 mcg/kg/m. She is on enteral feeding vital HP 17/17. FiO2 was cut down to 50% and set of 60%. Kept on the same PEEP of 10. Chest x-ray continues to show diffuse bilateral infiltrates, consistent with Covid 19 pneumonitis CBC is relatively normal left lites are normal renal profile is normal LDH is 844 C- reactive protein is 161. Ferritin is 635. Objective - Vital Signs Vital signs: Vital Signs Temp 97.7 F 03/09/20 04:00 Pulse 53 L 03/09/20 10:00 Resp 24 03/09/20 10:00 BP 114/69 03/09/20 07:00 Pulse Ox 94 L 03/09/20 10:00 Intake & Output 03/08/20 03/09/20 03/09/20 18:59 06:59 18:59 Intake Total 456.209 708.001 211.852 Output Total 375 362 35 Balance 81.209 346.001 176.852 Weight 110 kg 112.3 kg Intake: IV 220 240 20 Sodium Chloride 0.9% 1, 220 240 20 000 ml @ 20 mls/hr IV . Q24H KESHAV Rx#:[id number] Intake, IV Titration 236.209 208.001 174.852 Amount Norepinephrine 8 mg In 34.659 10.840 7.359 Sodium Chloride 0.9% 250 ml @ 0.05 MCG/KG/MIN 10. 643 mls/hr IV .Q24H KESHAV Rx#:[id number] fentaNYL (PF) 1,000 mcg 1.55 In Sodium Chloride 0.9% 80 ml @ Per Protocol IV . Q0M KESHAV Rx#:[id number] fentaNYL (PF) 1,000 mcg 84.333 In Sodium Chloride 0.9% 80 ml @ Per Protocol IV . Q0M KESHAV Rx#:[id number] propofoL 1,000 mg In 200 197.161 83.16 Empty Bag 1 bag @ Titrate IV .Q0M KESHAV Rx#: [id number] Tube Feeding 170 17 Other 90 Output: Urine 375 362 35 Other: Voiding Method Indwelling Catheter Indwelling Catheter Indwelling Catheter # Bowel Movements 0 ABP, PAP, CO, CI - Last Documented Arterial Blood Pressure 106/56 - Exam Physical Exam: Revealed a 79-year-old female, morbidly obese, intubated and mechanically ventilated. Head: Atraumatic, normocephalic. Endotracheal tube, orogastric tube are intact. Right subclavian central line is noted. HEENT:[Neck is supple.] [No neck masses.] [No thyromegaly.] [No JVD.] Chest: Symmetrical chest expansion, crackles and rhonchi noted bilaterally. Cardiac Exam: [Normal S1 and S2, no S3 gallop, no murmur.] Abdomen: [Morbidly obese, Soft, nontender, no megaly, no rebound, no guarding, normal bowel sounds.] Extremities: [No clubbing, no edema, no cyanosis.] Good pulses bilaterally Neurological Exam: Could not assess, patient is on propofol and fentanyl. Psychiatric could not assess - Labs CBC & Chem 7: 03/09/20 04:02 03/09/20 04:02 Labs: Abnormal Lab Results - Last 24 Hours (Table) 03/08/20 03/08/20 03/09/20 Range/Units 18:34 23:53 04:02 Lymphocytes # 0.6 L (1.0-4.8) k/uL ABG pH (7.35-7.45) ABG pCO2 (35-45) mmHg ABG pO2 (83-108) mmHg ABG HCO3 (21-25) mmol/L ABG Total CO2 (19-24) mmol/L Sodium (137-145) mmol/L BUN (7-17) mg/dL Glucose (74-99) mg/dL POC Glucose (mg/dL) 250 H 210 H (75-99) mg/dL Ferritin (10.0-291.0) ng/mL Lactate Dehydrogenase (313-618) U/L C-Reactive Protein (<10.0) mg/L Albumin (3.5-5.0) g/dL 03/09/20 03/09/20 03/09/20 Range/Units 04:02 05:16 05:30 Lymphocytes # (1.0-4.8) k/uL ABG pH 7.51 H (7.35-7.45) ABG pCO2 33 L (35-45) mmHg ABG pO2 72 L (83-108) mmHg ABG HCO3 26 H (21-25) mmol/L ABG Total CO2 27 H (19-24) mmol/L Sodium 136 L (137-145) mmol/L BUN 40 H (7-17) mg/dL Glucose 243 H (74-99) mg/dL POC Glucose (mg/dL) 243 H (75-99) mg/dL Ferritin 635.6 H (10.0-291.0) ng/mL Lactate Dehydrogenase 844 H (313-618) U/L C-Reactive Protein 161.8 H (<10.0) mg/L Albumin 3.1 L (3.5-5.0) g/dL 03/09/20 Range/Units 12:17 Lymphocytes # (1.0-4.8) k/uL ABG pH (7.35-7.45) ABG pCO2 (35-45) mmHg ABG pO2 (83-108) mmHg ABG HCO3 (21-25) mmol/L ABG Total CO2 (19-24) mmol/L Sodium (137-145) mmol/L BUN (7-17) mg/dL Glucose (74-99) mg/dL POC Glucose (mg/dL) 254 H (75-99) mg/dL Ferritin (10.0-291.0) ng/mL Lactate Dehydrogenase (313-618) U/L C-Reactive Protein (<10.0) mg/L Albumin (3.5-5.0) g/dL Microbiology - Last 24 Hours (Table) 03/08/20 22:25 Gram Stain - Preliminary Sputum Sputum Culture - Preliminary Assessment and Plan Assessment: Impression: Acute hypoxic respiratory failure secondary to Covid 19 pneumonitis. History of benign essential hypertension. History of dyslipidemia. History of underlying COPD, severity of which is not clear. Recommendation: Continue ventilatory support. Continue Covid 19 cocktail. GI and DVT prophylaxis. Nutritional support/enteral feeding. Hemodynamic support requiring minimal dose of norepinephrine will likely discontinue today. Continue Lovenox. Continue propofol and fentanyl for now. Continue DO NOT RESUSCITATE CODE STATUS. We'll follow. Critical care time is over 30 minutes Time with Patient: Greater than 30
[2020-03-09 17:34] LABS: Glucose,Whole Blood 193 mg/dL (75-99)
[2020-03-09] MEDS: DEXAMETHASONE SOD PHOSPHATE 4 MG/ML 1 ML VIAL IV SCH (20:59)
[2020-03-09] MEDS: SODIUM CHLORIDE 0.9% 1,000 ML IV SCH (20:59)
[2020-03-09] MEDS: ENOXAPARIN 40 MG/0.4 ML SYRINGE SQ SCH (20:59)
[2020-03-10 00:15] LABS: Glucose,Whole Blood 212 mg/dL (75-99)
[2020-03-10] MEDS: INSULIN ASPART (NovoLOG) 100 UNIT/ML VIAL SQ SCH ×2 (00:31→06:17)
[2020-03-10 04:34] LABS: Basophils % (A) 0 %; Eosinophils % (A) 0 %; HCT 34.1 % (34.0-46.0); HGB 11.2 gm/dL (11.4-16.0); Lymphocytes # (A) 0.6 k/uL (1.0-4.8); Lymphocytes % (A) 9 %; MCH 29.3 pg (25.0-35.0); MCHC 32.8 g/dL (31.0-37.0); MCV 89.5 fL (80.0-100.0); Mean Platelet Volume 7.6; Monocytes # (A) 0.3 k/uL (0-1.0); Monocytes % (A) 5 %; Neutrophils # (A) 5.3 k/uL (1.3-7.7); Neutrophils % (A) 85 %; Platelet Count 221 k/uL (150-450); RBC 3.81 m/uL (3.80-5.40); RDW 13.1 % (11.5-15.5); WBC 6.2 k/uL (3.8-10.6)
[2020-03-10 04:39] LABS: ABG Base Excess 3.1 mmol/L; ABG HCO3 26 mmol/L (21-25); ABG Oxygen Saturation 94.3 % (94-97); ABG PCO2 34 mmHg (35-45); ABG PO2 72 mmHg (83-108); ABG TCO2 27 mmol/L (19-24)
[2020-03-10 05:07] LABS: Albumin 2.9 g/dL (3.5-5.0); C Reactive Protein 69.6 mg/L (<10.0); Calcium 8.5 mg/dL (8.4-10.2); Potassium 4.1 mmol/L (3.5-5.1); Total Bilirubin 0.6 mg/dL (0.2-1.3)
[2020-03-10 05:56] LABS: Allen Test Performed? no
[2020-03-10 06:07] LABS: Glucose,Whole Blood 271 mg/dL (75-99)
--- NOTE | 2020-03-10 07:33 | XR ---
EXAMINATION TYPE: XR chest 1V portable DATE OF EXAM: 03/10/2020 COMPARISON: 03/09/2020 HISTORY: Tube placement TECHNIQUE: Single frontal view of the chest is obtained. FINDINGS: Right hemidiaphragm elevation. Multifocal bilateral areas of patchy infiltrate are noted. Thoracic aorta is somewhat prominent in appearance. Patient is rotated. ET tube, NG tube, and central line stable. No sizable pneumothorax. IMPRESSION: Bilateral pleural-parenchymal changes could represent diffuse pneumonia. Underlying CHF not excluded. Findings stable.
[2020-03-10] MEDS: PANTOPRAZOLE 40 MG/10 ML VIAL IVP SCH (09:08)
[2020-03-10] MEDS: CHLORHEXIDINE GLUCONATE 15 ML CUP MUCOUS MEM SCH (09:08)
[2020-03-10 09:55] LABS: Ferritin 381.9 ng/mL (10.0-291.0)
[2020-03-10 10:01] VITALS: TEMP 98.6
[2020-03-10 11:26] VITALS: BMI 45.5
[2020-03-10] MEDS ORDERED: FUROSEMIDE 10 MG/ML 4 ML VIAL IV STA (11:27)
[2020-03-10] MEDS ORDERED: MORPHINE SULFATE 4 MG/ML SYRINGE IVP PRN (12:19)
[2020-03-10] MEDS: LORazepam 2 MG/ML INJ IV PRN (12:50)
--- NOTE | 2020-03-10 14:24 | P.PN ---
Subjective Progress Note Date: 03/10/20 Principal diagnosis: COVID 19 pneumonia This is a 79-year-old female transferred last night from [facility] to our ER with acute hypoxic respiratory failure, and bilateral pneumonia. Patient tested positive for covid 19, and her chest x-ray is classic for Covid 19 pne umonitis. Patient was initially on BiPAP, and her initial ABG was extremely poor. Patient was admitted to the ICU, and she Removing her BiPAP. Hence she was intubated and placed on mechanical ventilation. I saw this patient this morning, and she is now on assist control mode of mechanical ventilation, rate of 2412 volume is 450 FiO2 is 60% and PEEP of 10. ABG on 100% FiO2 showed a pO2 of 207 pCO2 of 37 pH of 7.46. Patient is on propofol at 50 mcg/kg/m, she also on fentanyl at 0.5 mcg/kg per hour. She received 1 dose of remdesivir at [facility], I was considering to continue the medication, however since her CODE STATUS has been changed, and the daughter is considering possible comfort care measures, will hold further treatment with remdesivir. Chest x-ray showed evidence of diffuse interstitial infiltrates. On 03/10/2020 patient seen in follow-up in intensive care unit, she remains sedated, intubated on mechanical ventilator, current vent settings are assist control with a rate of 24, tidal volume of 450, FiO2 50%, and PEEP of 5, and this morning blood gases showed pO2 of 72, pCO2 34, and pH of 7.50, IV drips include 0.907 at a rate of 20 ML per hour and a per min is a 50 mics per kilo per minute, she is on tube feedings with vital high-protein at a rate of 17 with a goal of 17. Patient has been afebrile overnight, hemodynamically she is stable, she received one-time dose of Remdesivir at that [facility]. Today's chest x-ray shows bilateral pleural parenchymal changes representing diffuse pneumonia related to Covid 19 infection. CHF could not be excluded. Today's labs have been reviewed including Levaquin, 6.2, hemoglobin of 11.2, lymphopenia with a lymphocyte count of 0.6, electrolytes were unremarkable, B1 of 36 and creatinine 0.79. LDH is trending down down to 710, CRP is down to 69.6 from 204. Patient continues on IV steroids, prophylactic dose of Lovenox. Her CODE STATUS is DO NOT RESUSCITATE, apparently this was not known before she got intubated in the emergency department, however when the family was contacted and they wanted to continue with supportive care and they went to continue ventilator support with a possibility of weaning and extubation today with the idea of not reintubating. Objective - Vital Signs Vital signs: Vital Signs Temp 98.6 F 03/10/20 08:00 Pulse 72 03/10/20 08:00 Resp 24 03/10/20 08:00 BP 121/81 03/10/20 08:00 Pulse Ox 97 03/10/20 08:00 Intake & Output 03/09/20 03/10/20 03/10/20 18:59 06:59 18:59 Intake Total 865.423 768.923 287.998 Output Total 565 433 90 Balance 300.423 335.923 197.998 Weight 112.9 kg 112.9 kg Intake: IV 260 253 92 Pressure Bag 33 12 Sodium Chloride 0.9% 1, 260 220 80 000 ml @ 20 mls/hr IV . Q24H KESHAV Rx#:[id number] Intake, IV Titration 294.423 238.923 97.998 Amount Norepinephrine 8 mg In 7.359 0.959 Sodium Chloride 0.9% 250 ml @ 0.05 MCG/KG/MIN 10. 643 mls/hr IV .Q24H KESHAV Rx#:[id number] fentaNYL (PF) 1,000 mcg 103.904 In Sodium Chloride 0.9% 80 ml @ Per Protocol IV . Q0M KESHAV Rx#:[id number] propofoL 1,000 mg In 183.16 237.964 97.998 Empty Bag 1 bag @ Titrate IV .Q0M KESHAV Rx#: [id number] Tube Feeding 221 187 68 Other 90 90 30 Output: Urine 565 433 90 Other: Voiding Method Indwelling Catheter Indwelling Catheter # Bowel Movements 0 0 ABP, PAP, CO, CI - Last Documented Arterial Blood Pressure 115/61 - Exam GENERAL EXAM: Sedated, 79-year-old white female on assist-control mode of ventilation with FiO2 of 50%, comfortable in no apparent distress. HEAD: Normocephalic/atraumatic. EYES: Normal reaction of pupils, equal size. Conjunctiva pink, sclera white. NOSE: Clear with pink turbinates. THROAT: No erythema or exudates. NECK: No masses, no JVD, no thyroid enlargement, no adenopathy. CHEST: No chest wall deformity. Symmetrical expansion. LUNGS: Equal air entry with no crackles, wheeze, rhonchi or dullness. CVS: Regular rate and rhythm, normal S1 and S2, no gallops, no murmurs, no rubs ABDOMEN: Soft, nontender. No hepatosplenomegaly, normal bowel sounds, no guarding or rigidity. EXTREMITIES: No clubbing, no edema, no cyanosis, 2+ pulses and upper and lower extremities. MUSCULOSKELETAL: Muscle strength and tone normal. SPINE: No scoliosis or deformity SKIN: No rashes CENTRAL NERVOUS SYSTEM: Sedated and intubated No focal deficits, tone is normal in all 4 extremities. - Labs CBC & Chem 7: 03/10/20 04:10 03/10/20 04:10 Labs: Abnormal Lab Results - Last 24 Hours (Table) 03/09/20 03/10/20 03/10/20 Range/Units 17:33 00:13 04:10 Hgb 11.2 L (11.4-16.0) gm/dL Lymphocytes # 0.6 L (1.0-4.8) k/uL ABG pH (7.35-7.45) ABG pCO2 (35-45) mmHg ABG pO2 (83-108) mmHg ABG HCO3 (21-25) mmol/L ABG Total CO2 (19-24) mmol/L Sodium (137-145) mmol/L BUN (7-17) mg/dL Glucose (74-99) mg/dL POC Glucose (mg/dL) 193 H 212 H (75-99) mg/dL Ferritin (10.0-291.0) ng/mL Lactate Dehydrogenase (313-618) U/L C-Reactive Protein (<10.0) mg/L Total Protein (6.3-8.2) g/dL Albumin (3.5-5.0) g/dL 03/10/20 03/10/20 03/10/20 Range/Units 04:10 04:30 06:05 Hgb (11.4-16.0) gm/dL Lymphocytes # (1.0-4.8) k/uL ABG pH 7.50 H (7.35-7.45) ABG pCO2 34 L (35-45) mmHg ABG pO2 72 L (83-108) mmHg ABG HCO3 26 H (21-25) mmol/L ABG Total CO2 27 H (19-24) mmol/L Sodium 136 L (137-145) mmol/L BUN 36 H (7-17) mg/dL Glucose 271 H (74-99) mg/dL POC Glucose (mg/dL) 271 H (75-99) mg/dL Ferritin 381.9 H (10.0-291.0) ng/mL Lactate Dehydrogenase 710 H (313-618) U/L C-Reactive Protein 69.6 H (<10.0) mg/L Total Protein 6.0 L (6.3-8.2) g/dL Albumin 2.9 L (3.5-5.0) g/dL Microbiology - Last 24 Hours (Table) 03/08/20 22:25 Gram Stain - Preliminary Sputum Sputum Culture - Preliminary Gram Neg Bacilli Assessment and Plan Plan: Assessment: Acute hypoxic respiratory failure secondary to Covid 19 pneumonitis. History of benign essential hypertension. History of dyslipidemia. History of underlying COPD, severity of which is not clear. Plan: Patient was given a spontaneous awaking and spontaneous breathing trial, she was extubated to high flow oxygen, however she very quickly started having increased difficulty breathing, very agitated, restless, requiring IV morphine, she was given 40 of Lasix with extubation, the family was updated, overall prognosis is poor, patient will continue on IV steroids, however the patient's family was updated and they decided to go ahead and start comfort care protocol. Patient will be given IV morphine, and comfort care protocol will be initiated per family wishes. I performed a history & physical examination of the patient and discussed their management with my nurse practitioner, Carolina Gonzalez. I reviewed the nurse practitioner's note and agree with the documented findings and plan of care. Lung sounds are positive for diffuse crackles The findings and the impression was discussed with the patient. I attest to the documentation by the nurse practitioner. Time with Patient: Greater than 30
[2020-03-10] MEDS ORDERED: SCOPOLAMINE 1.5MG/72HR PATCH TRANSDERM SCH (14:30)
[2020-03-10] MEDS ORDERED: MORPHINE SULFATE (100 MG/2 ML) 100 MG in SODIUM CHLORIDE 0.9% 100 ML IV SCH (14:30)
[2020-03-10 15:18] VITALS: BP 161/76; PULSE 84; RESP 53
--- NOTE | 2020-03-10 19:55 | P.PN ---
Subjective This is a pleasant 79 years old female who was transferred from [facility] for bilateral covid Pneumonia as her test came back positive she's also with acute hypoxic respiratory failure initially she was on BiPAP but later on she needed intubation and placed on mechanical ventilation and was transferred to the intensive care unit under the care and close monitoring of the pulmonary/critical care team, patient could not provide information and were obtained from records Patient currently is on dexamethasone and supportive care and medication Patient status changed to DO NOT RESUSCITATE per daughter request labs and vitals are reviewed 03/09/2020 Patient remains in critical condition in the ICU, she is with Covid pneumonia needing mechanical ventilation. Pulmonary/critical care team on the case. Her chest x-ray showing bilateral pulmonary infiltrates consistent with Covid 19 pneumonia. There is mild increased inflammatory markers which was with her infection. As per pulmonary team patient was made DO NOT RESUSCITATE. Her prognosis is very poor Review of systems: N/a Active Medications Generic Name Dose Route Start Last Admin Trade Name Freq PRN Reason Stop Dose Admin Morphine Sulfate 100 mg/ 102 mls @ 1.02 mls/hr 03/10/20 14:30 03/10/20 16:00 Sodium Chloride IV 40 mg/hr .Q24H KESHAV 40.8 mls/hr Titration Protocol 1 MG/HR Lorazepam 0.5 mg 03/08/20 02:05 03/10/20 12:50 Lorazepam 2 Mg/Ml Inj IV 0.5 mg Q4HR PRN Administration Anxiety Morphine Sulfate 4 mg 03/10/20 12:19 03/10/20 12:23 Morphine Sulfate 4 Mg/Ml Syringe IVP 4 mg Q4HR PRN Administration Pain Scopolamine 1 patch 03/10/20 14:30 03/10/20 15:08 Scopolamine 1.5mg/72hr Patch TRANSDERM 1 patch Q72H KESHAV Administration Objective - Vital Signs Vital signs: Vital Signs Temp 97.3 F L 03/09/20 16:00 Pulse 63 03/09/20 17:00 Resp 24 03/09/20 17:00 BP 114/69 03/09/20 07:00 Pulse Ox 95 03/09/20 17:00 Intake & Output 03/08/20 03/09/20 03/09/20 18:59 06:59 18:59 Intake Total 456.209 708.001 671.852 Output Total 375 362 505 Balance 81.209 346.001 166.852 Weight 110 kg 112.3 kg Intake: IV 220 240 220 Sodium Chloride 0.9% 1, 220 240 220 000 ml @ 20 mls/hr IV . Q24H KESHAV Rx#:[id number] Intake, IV Titration 236.209 208.001 174.852 Amount Norepinephrine 8 mg In 34.659 10.840 7.359 Sodium Chloride 0.9% 250 ml @ 0.05 MCG/KG/MIN 10. 643 mls/hr IV .Q24H KESHAV Rx#:[id number] fentaNYL (PF) 1,000 mcg 1.55 In Sodium Chloride 0.9% 80 ml @ Per Protocol IV . Q0M KESHAV Rx#:[id number] fentaNYL (PF) 1,000 mcg 84.333 In Sodium Chloride 0.9% 80 ml @ Per Protocol IV . Q0M KESHAV Rx#:[id number] propofoL 1,000 mg In 200 197.161 83.16 Empty Bag 1 bag @ Titrate IV .Q0M KESHAV Rx#: [id number] Tube Feeding 170 187 Other 90 90 Output: Urine 375 362 505 Other: Voiding Method Indwelling Catheter Indwelling Catheter Indwelling Catheter # Bowel Movements 0 ABP, PAP, CO, CI - Last Documented Arterial Blood Pressure 98/57 - Exam -GENERAL: The patient is intubated and sedated HEENT: Pupils are round and equally reacting to light. EOMI. No scleral icterus. No conjunctival pallor. Normocephalic, atraumatic. No pharyngeal erythema. No t hyromegaly. CARDIOVASCULAR: S1 and S2 present. No murmurs, rubs, or gallops. PULMONARY: Chest is clear to auscultation, no wheezing or crackles. ABDOMEN: Soft, nontender, nondistended, normoactive bowel sounds. No palpable organomegaly. MUSCULOSKELETAL: No joint swelling or deformity. EXTREMITIES: No cyanosis, clubbing, or pedal edema. NEUROLOGICAL: Gross neurological examination did not reveal any focal deficits. SKIN: No rashes. no petechiae. - Labs CBC & Chem 7: 03/10/20 04:10 03/10/20 04:10 Labs: Abnormal Lab Results - Last 24 Hours (Table) 03/08/20 03/08/20 03/09/20 Range/Units 18:34 23:53 04:02 Lymphocytes # 0.6 L (1.0-4.8) k/uL ABG pH (7.35-7.45) ABG pCO2 (35-45) mmHg ABG pO2 (83-108) mmHg ABG HCO3 (21-25) mmol/L ABG Total CO2 (19-24) mmol/L Sodium (137-145) mmol/L BUN (7-17) mg/dL Glucose (74-99) mg/dL POC Glucose (mg/dL) 250 H 210 H (75-99) mg/dL Ferritin (10.0-291.0) ng/mL Lactate Dehydrogenase (313-618) U/L C-Reactive Protein (<10.0) mg/L Albumin (3.5-5.0) g/dL 03/09/20 03/09/20 03/09/20 Range/Units 04:02 05:16 05:30 Lymphocytes # (1.0-4.8) k/uL ABG pH 7.51 H (7.35-7.45) ABG pCO2 33 L (35-45) mmHg ABG pO2 72 L (83-108) mmHg ABG HCO3 26 H (21-25) mmol/L ABG Total CO2 27 H (19-24) mmol/L Sodium 136 L (137-145) mmol/L BUN 40 H (7-17) mg/dL Glucose 243 H (74-99) mg/dL POC Glucose (mg/dL) 243 H (75-99) mg/dL Ferritin 635.6 H (10.0-291.0) ng/mL Lactate Dehydrogenase 844 H (313-618) U/L C-Reactive Protein 161.8 H (<10.0) mg/L Albumin 3.1 L (3.5-5.0) g/dL 03/09/20 Range/Units 12:17 Lymphocytes # (1.0-4.8) k/uL ABG pH (7.35-7.45) ABG pCO2 (35-45) mmHg ABG pO2 (83-108) mmHg ABG HCO3 (21-25) mmol/L ABG Total CO2 (19-24) mmol/L Sodium (137-145) mmol/L BUN (7-17) mg/dL Glucose (74-99) mg/dL POC Glucose (mg/dL) 254 H (75-99) mg/dL Ferritin (10.0-291.0) ng/mL Lactate Dehydrogenase (313-618) U/L C-Reactive Protein (<10.0) mg/L Albumin (3.5-5.0) g/dL Microbiology - Last 24 Hours (Table) 03/08/20 22:25 Gram Stain - Preliminary Sputum Sputum Culture - Preliminary Assessment and Plan Assessment: Acute bilateral covid pneumonia Acute hypoxic respiratory failure needing intubation and mechanical ventilation Increase inflammatory markers Hypertension Hyperlipidemia COPD Plan: This is a 79 years old female who presents with Covid pneumonia. Continue with ICU management, continue with intubation and mechanical ventilation with management as per pulmonary/critical care team. Continue with dexamethasone. Labs and medication were reviewed.. Continue same treatment. Continue with symptomatic treatment. Resume home medication. Monitor lytes and vitals. DVT and GI prophylaxis. Further recommendationsas per clinical course of the patient DVT prophylaxis: Lovenox subcutaneously GI Prophylaxis: Ppi Prognosis is very guarded CODE STATUS: Changed to DO NOT RESUSCITATE per Daughter request
--- NOTE | 2020-03-10 19:57 | P.PN ---
Subjective This is a pleasant 79 years old female who was transferred from [facility] for bilateral covid Pneumonia as her test came back positive she's also with acute hypoxic respiratory failure initially she was on BiPAP but later on she needed intubation and placed on mechanical ventilation and was transferred to the intensive care unit under the care and close monitoring of the pulmonary/critical care team, patient could not provide information and were obtained from records Patient currently is on dexamethasone and supportive care and medication Patient status changed to DO NOT RESUSCITATE per daughter request labs and vitals are reviewed 03/09/2020 Patient remains in critical condition in the ICU, she is with Covid pneumonia needing mechanical ventilation. Pulmonary/critical care team on the case. Her chest x-ray showing bilateral pulmonary infiltrates consistent with Covid 19 pneumonia. There is mild increased inflammatory markers which was with her infection. As per pulmonary team patient was made DO NOT RESUSCITATE. Her prognosis is very poor 02/12/2020 Patient remains in the ICU. As per discussion of the family with the pulmonary/critical care team she was extubated, went into immediate respiratory. Family were contacted by pulmonary team and patient was made comfort care Review of systems: N/a Active Medications Generic Name Dose Route Start Last Admin Trade Name Freq PRN Reason Stop Dose Admin Morphine Sulfate 100 mg/ 102 mls @ 1.02 mls/hr 03/10/20 14:30 03/10/20 16:00 Sodium Chloride IV 40 mg/hr .Q24H KESHAV 40.8 mls/hr Titration Protocol 1 MG/HR Lorazepam 0.5 mg 03/08/20 02:05 03/10/20 12:50 Lorazepam 2 Mg/Ml Inj IV 0.5 mg Q4HR PRN Administration Anxiety Morphine Sulfate 4 mg 03/10/20 12:19 03/10/20 12:23 Morphine Sulfate 4 Mg/Ml Syringe IVP 4 mg Q4HR PRN Administration Pain Scopolamine 1 patch 03/10/20 14:30 03/10/20 15:08 Scopolamine 1.5mg/72hr Patch TRANSDERM 1 patch Q72H KESHAV Administration Objective - Vital Signs Vital signs: Vital Signs Temp 98.6 F 03/10/20 08:00 Pulse 84 03/10/20 15:00 Resp 53 H 03/10/20 15:00 BP 161/76 03/10/20 15:00 Pulse Ox 86 L 03/10/20 15:00 Intake & Output 03/10/20 03/10/20 03/11/20 06:59 18:59 06:59 Intake Total 768.923 445.694 Output Total 433 790 Balance 335.923 -344.306 Weight 112.9 kg 112.9 kg Intake: IV 253 207 Pressure Bag 33 27 Sodium Chloride 0.9% 1, 220 180 000 ml @ 20 mls/hr IV . Q24H KESHAV Rx#:[id number] Intake, IV Titration 238.923 140.694 Amount Morphine Sulfate (100 mg/ 11.084 2 ml) 100 mg In Sodium Chloride 0.9% 100 ml @ 1 MG/HR 1.02 mls/hr IV . Q24H KESHAV Rx#:[id number] Norepinephrine 8 mg In 0.959 Sodium Chloride 0.9% 250 ml @ 0.05 MCG/KG/MIN 10. 643 mls/hr IV .Q24H KESHAV Rx#:[id number] propofoL 1,000 mg In 237.964 129.610 Empty Bag 1 bag @ Titrate IV .Q0M KESHAV Rx#: [id number] Tube Feeding 187 68 Other 90 30 Output: Urine 433 790 Other: Voiding Method Indwelling Catheter Indwelling Catheter # Bowel Movements 0 ABP, PAP, CO, CI - Last Documented Arterial Blood Pressure 115/61 - Exam -GENERAL: The patient is resting comfortable, obtunded HEENT: Pupils are round and equally reacting to light. EOMI. No scleral icterus. No conjunctival pallor. Normocephalic, atraumatic. No pharyngeal erythema. No thyromegaly. CARDIOVASCULAR: S1 and S2 present. No murmurs, rubs, or gallops. -PULMONARY: Tachypnea with bilateral crepitation ABDOMEN: Soft, nontender, nondistended, normoactive bowel sounds. No palpable organomegaly. MUSCULOSKELETAL: No joint swelling or deformity. EXTREMITIES: No cyanosis, clubbing, or pedal edema. NEUROLOGICAL: Gross neurological examination did not reveal any focal deficits. SKIN: No rashes. no petechiae. - Labs CBC & Chem 7: 03/10/20 04:10 03/10/20 04:10 Labs: Abnormal Lab Results - Last 24 Hours (Table) 03/10/20 03/10/20 03/10/20 Range/Units 00:13 04:10 04:10 Hgb 11.2 L (11.4-16.0) gm/dL Lymphocytes # 0.6 L (1.0-4.8) k/uL ABG pH (7.35-7.45) ABG pCO2 (35-45) mmHg ABG pO2 (83-108) mmHg ABG HCO3 (21-25) mmol/L ABG Total CO2 (19-24) mmol/L Sodium 136 L (137-145) mmol/L BUN 36 H (7-17) mg/dL Glucose 271 H (74-99) mg/dL POC Glucose (mg/dL) 212 H (75-99) mg/dL Ferritin 381.9 H (10.0-291.0) ng/mL Lactate Dehydrogenase 710 H (313-618) U/L C-Reactive Protein 69.6 H (<10.0) mg/L Total Protein 6.0 L (6.3-8.2) g/dL Albumin 2.9 L (3.5-5.0) g/dL 03/10/20 03/10/20 Range/Units 04:30 06:05 Hgb (11.4-16.0) gm/dL Lymphocytes # (1.0-4.8) k/uL ABG pH 7.50 H (7.35-7.45) ABG pCO2 34 L (35-45) mmHg ABG pO2 72 L (83-108) mmHg ABG HCO3 26 H (21-25) mmol/L ABG Total CO2 27 H (19-24) mmol/L Sodium (137-145) mmol/L BUN (7-17) mg/dL Glucose (74-99) mg/dL POC Glucose (mg/dL) 271 H (75-99) mg/dL Ferritin (10.0-291.0) ng/mL Lactate Dehydrogenase (313-618) U/L C-Reactive Protein (<10.0) mg/L Total Protein (6.3-8.2) g/dL Albumin (3.5-5.0) g/dL Microbiology - Last 24 Hours (Table) 03/08/20 22:25 Gram Stain - Preliminary Sputum Sputum Culture - Preliminary Gram Neg Bacilli Assessment and Plan Assessment: Acute bilateral covid pneumonia Acute hypoxic respiratory failure needing intubation and mechanical ventilation Increase inflammatory markers Hypertension Hyperlipidemia COPD Plan: This is a 79 years old female who presents with Covid pneumonia. Patient was extubated by pulmonary team, she was made comfort care by family request Continue with comfort care measures Prognosis is very guarded CODE STATUS: Changed to DO NOT RESUSCITATE per Daughter request
--- NOTE | 2020-03-11 06:56 | P.DS ---
Providers Date of admission: 03/07/20 19:14 Attending physician: Hector Rachel MD Primary care physician: Tray Horn Hospital Course: diagnoses : Acute bilateral covid pneumonia Acute hypoxic respiratory failure needing intubation and mechanical ventilation Increase inflammatory markers Hypertension Hyperlipidemia COPD hospital course this is a 79 yo F who presents with covid pneumonia ,admitted to the icu, she was made comfort care by family with the critical care team and eventually she last night please see chart for more details , and nurse notes Patient Condition at Discharge: Critical Plan - Discharge Summary Discharge Rx Participant: Yes New Discharge Prescriptions: No Action Magnesium Hydroxide [Milk of Magnesia] 2,400 mg PO Q48H PRN PRN Reason: Constipation Acetaminophen [Tylenol] 650 mg PO Q6H PRN PRN Reason: Fever LORazepam [Ativan] 1 mg PO Q2H PRN PRN Reason: Anxiety Diphenox-Atrop 2.5-0.025 mg [Lomotil] 1 tab PO QID PRN PRN Reason: Diarrhea HYDROcodone/APAP 5-325MG [Sheldahl 5-325] 1 tab PO QID Gabapentin [Neurontin] 100 mg PO BID Carvedilol [Coreg] 12.5 mg PO BID Artificial Tears-Hypromellose [Artificial Tear Drops] 1 drops BOTH EYES BID Azithromycin [Zithromax Z-pack (6 tabs)] See Taper PO DIRECTED Zinc 50 mg PO DAILY Cholecalciferol [Vitamin D3 (25 Mcg = 1000 Iu)] 5,000 unit PO DAILY Ascorbic Acid [Vitamin C] 500 mg PO DAILY Sennosides-Docusate Sodium [Senokot-S] 1 tab PO HS Pantoprazole Sodium [Protonix] 20 mg PO DAILY Mirtazapine [Remeron] 15 mg PO HS lisinopriL [Zestril] 2.5 mg PO DAILY Potassium Chloride ER [K-Dur 10] 10 meq PO DAILY Levothyroxine Sodium [Synthroid] 50 mcg PO DAILY Furosemide [Lasix] 20 mg PO DAILY Dexamethasone 6 mg PO DAILY DULoxetine HCL [Cymbalta] 60 mg PO DAILY Atorvastatin [Lipitor] 10 mg PO HS Aspirin [Adult Low Dose Aspirin EC] 81 mg PO DAILY Discharge Medication List Acetaminophen [Tylenol] 650 mg PO Q6H PRN 03/07/20 [History] Artificial Tears-Hypromellose [Artificial Tear Drops] 1 drops BOTH EYES BID 03/07/20 [History] Ascorbic Acid [Vitamin C] 500 mg PO DAILY 03/07/20 [History] Aspirin [Adult Low Dose Aspirin EC] 81 mg PO DAILY 03/07/20 [History] Atorvastatin [Lipitor] 10 mg PO HS 03/07/20 [History] Azithromycin [Zithromax Z-pack (6 tabs)] See Taper PO DIRECTED 03/07/20 [History] Carvedilol [Coreg] 12.5 mg PO BID 03/07/20 [History] Cholecalciferol [Vitamin D3 (25 Mcg = 1000 Iu)] 5,000 unit PO DAILY 03/07/20 [History] DULoxetine HCL [Cymbalta] 60 mg PO DAILY 03/07/20 [History] Dexamethasone 6 mg PO DAILY 03/07/20 [History] Diphenox-Atrop 2.5-0.025 mg [Lomotil] 1 tab PO QID PRN 03/07/20 [History] Furosemide [Lasix] 20 mg PO DAILY 03/07/20 [History] Gabapentin [Neurontin] 100 mg PO BID 03/07/20 [History] HYDROcodone/APAP 5-325MG [Sheldahl 5-325] 1 tab PO QID 03/07/20 [History] LORazepam [Ativan] 1 mg PO Q2H PRN 03/07/20 [History] Levothyroxine Sodium [Synthroid] 50 mcg PO DAILY 03/07/20 [History] Magnesium Hydroxide [Milk of Magnesia] 2,400 mg PO Q48H PRN 03/07/20 [History] Mirtazapine [Remeron] 15 mg PO HS 03/07/20 [History] Pantoprazole Sodium [Protonix] 20 mg PO DAILY 03/07/20 [History] Potassium Chloride ER [K-Dur 10] 10 meq PO DAILY 03/07/20 [History] Sennosides-Docusate Sodium [Senokot-S] 1 tab PO HS 03/07/20 [History] Zinc 50 mg PO DAILY 03/07/20 [History] lisinopriL [Zestril] 2.5 mg PO DAILY 03/07/20 [History] Follow up Appointment(s)/Referral(s): Nonstaff,Physician [REFERRING] - 1-2 days Discharge Disposition: - Preliminary Cause of Preliminary Cause of : covid pneumonia
--- NOTE | 2020-03-13 12:57 | CDI ---
Documentation Clarification Form Date: 03/13/2020 From: Rosalina Sood RN, CCDS Email: [email or web address] Admit Date: 03/07/2020 07:14:00 PM Patient Name: Irlanda Amaya Visit Number: [id number] Discharge Date: 03/10/2020 09:06:00 PM ATTENTION: The Clinical Documentation Specialists (CDI) and [facility] Coding Staff appreciate your assistance in clarifying documentation. Please respond to the clarification below the line at the bottom and electronically sign. The CDI & [facility] Coding staff will review the response and follow-up if needed. Please note: Queries are made part of the Legal Health Record. If you have any questions, please contact the author of this message via ITS. Dr. Hector Rachel Chest x-ray shows CHF and possible right lower lobe pneumonia and right pleural effusion is documented in the 03/07 ED note. History/Risk Factors: COPD, HTN, morbid obesity, hyperlipidemia, Covid+, acute respiratory failure Clinical Indicators: SOB, difficulty breathing. Lungs with crackles and rhonchi noted bilaterally on 03/09 03/10 Pulmonary note: 'Today's chest x-ray shows bilateral pleural parenchymal changes representing diffuse pneumonia related to Covid 19 infection. CHF could not be excluded' VS/Pulse OX: 03/07 pox 88%. 03/08 BP 70/53. 03/09 HR 53. 03/10 HR 105. RR 24-53 03/07 CXR: Congestive heart failure. There is probably also right lower lobe pneumonia. Right pleural effusion. 03/08 CXR: New right central venous catheter terminates in right atrium. No pneumothorax noted. Persistent low lung volumes and cardiomegaly with bilateral multifocal edema and/or infiltrates. 03/09 CXR: Chronic parenchymal changes and cardiomegaly with bilateral multifocal infiltrates and/or edema redemonstrated 03/10 CXR: Bilateral pleural-parenchymal changes could represent diffuse pneumonia. Underlying CHF not excluded. Treatment: IV Lasix 40mg on 03/10. Intubated and ventilated In your professional opinion, can you please clarify the acuity and type of CHF if known? Systolic Heart Failure: Acute Chronic Acute on Chronic Diastolic Heart Failure: Acute Chronic Acute on Chronic Systolic & Diastolic Heart Failure: Acute Chronic Acute on Chronic Heart Failure Unable to Determine Other, please specify Unable to Determine MTDD
== END 2020-03-10 21:06 | disposition expired | DRG 208 ==
LOC: EC 18:12 → 2SICU 19:14
PROVIDERS: ADMIT Internal Medicine; ATTEND Internal Medicine
PROC: 5A09357 Assistance with Respiratory Ventilation, Less than 24 Consecutive Hours, Continuous Positive Airway Pressure (ICD-10-PCS; 2020-03-07)
PROC: 0BH17EZ Insertion of Endotracheal Airway into Trachea, Via Natural or Artificial Opening (ICD-10-PCS; principal; 2020-03-08)
PROC: 5A1945Z Respiratory Ventilation, 24-96 Consecutive Hours (ICD-10-PCS; principal; 2020-03-08)
PROC: 03HY32Z Insertion of Monitoring Device into Upper Artery, Percutaneous Approach (ICD-10-PCS; 2020-03-08)
PROC: 4A133J1 Monitoring of Arterial Pulse, Peripheral, Percutaneous Approach (ICD-10-PCS; 2020-03-08)
PROC: 02H633Z Insertion of Infusion Device into Right Atrium, Percutaneous Approach (ICD-10-PCS; 2020-03-08)
PROC: 4A133B1 Monitoring of Arterial Pressure, Peripheral, Percutaneous Approach (ICD-10-PCS; 2020-03-08)
PROC: 3E0G76Z Introduction of Nutritional Substance into Upper GI, Via Natural or Artificial Opening (ICD-10-PCS; 2020-03-08)
PROC: 0DH67UZ Insertion of Feeding Device into Stomach, Via Natural or Artificial Opening (ICD-10-PCS; 2020-03-08)
DX: U07.1 COVID-19 (principal); J12.89 Other viral pneumonia; J96.01 Acute respiratory failure with hypoxia; J44.0 Chronic obstructive pulmonary disease with (acute) lower respiratory infection; Z68.42 Body mass index [BMI] 45.0-49.9, adult; Z51.5 Encounter for palliative care; Z66 Do not resuscitate; I11.0 Hypertensive heart disease with heart failure; E78.5 Hyperlipidemia, unspecified; I50.9 Heart failure, unspecified; Z79.82 Long term (current) use of aspirin; Z79.890 Hormone replacement therapy; Z79.899 Other long term (current) drug therapy; E66.01 Morbid (severe) obesity due to excess calories
CPT/HCPCS: 36600; 51702; 71045; 80053; 82553; 82728; 82805; 83036; 83615; 85025; 85379; 86140; 87070; 87077; 87186; 87205; 93005; 94002; 94003; 94660; 99291